=== PATIENT | male | born 1935 | race Caucasian/White ===

== ENCOUNTER 2022-09-27 08:36 | Day surgery (SDC) | payer MEDICARE, OTHER ==
[~2022-09-27] VITALS: Ht 185.4 cm; Wt 88.5 kg
[2022-09-27] VITALS (7 sets, daily range): BP systolic 130–146; BP diastolic 52–92
[2022-09-27] MEDS ORDERED: LIDOcaine 1% 30ml preserv. free vial SQ STA (08:52)
[2022-09-27] MEDS ORDERED: LEVO137T2 PO (08:59)
[2022-09-27] MEDS ORDERED: AZEL137S4 BOTHNARES (08:59)
[2022-09-27] MEDS ORDERED: normal saline 1000ml 1,000 ML IV PRN (09:00)
[2022-09-27] MEDS ORDERED: METO-395 PO (09:02)
[2022-09-27] MEDS ORDERED: FINA5TAB11 PO (09:02)
[2022-09-27] MEDS ORDERED: MONT-40 PO (09:02)
[2022-09-27] MEDS ORDERED: ATOR20TA66 PO (09:02)
[2022-09-27] MEDS ORDERED: ATRNS (09:02)
[2022-09-27] MEDS ORDERED: AMIO200T61 PO (09:02)
[2022-09-27] MEDS ORDERED: DABI150C PO (09:02)
[2022-09-27] MEDS ORDERED: FLO0.4C PO (09:02)
[2022-09-27] MEDS ORDERED: METF-1203 PO (09:02)
[2022-09-27] MEDS ORDERED: ONDA-103 PO (09:02)
[2022-09-27 10:55] LABS: GLUCOSE,BODY FLUID 102 MG/DL; LDH,BODY FLUID 75 U/L; TOTAL PROTEIN,BODY FLUID 4.3 G/DL
[2022-09-27 11:11] LABS: BFAPPEAR HAZY; BFCOLOR YELLOW
[2022-09-27 11:12] LABS: BF RBC COUNT 4 /CU MM; BF WBC COUNT 212 /CU MM (0-1000); BFVOLUME 60 ML; LYMPHOCYTES,BODY FLUID 88 %; MONOCYTES,BODY FLUID 12 %
== END 2022-09-27 10:20 | disposition home or self-care (01) ==
LOC: SSTAY O 08:36
PROVIDERS: ATTEND Radiology Diagnostic Radiology
DX: J90 Pleural effusion, not elsewhere classified (principal); I10 Essential (primary) hypertension; N40.0 Benign prostatic hyperplasia without lower urinary tract symptoms; E03.9 Hypothyroidism, unspecified; E11.9 Type 2 diabetes mellitus without complications; I48.91 Unspecified atrial fibrillation; Z79.899 Other long term (current) drug therapy; Z79.84 Long term (current) use of oral hypoglycemic drugs
CPT/HCPCS: 32555; 82945; 83615; 84157; 87070; 89051